=== PATIENT | male | born 1945 | race African-American/Black ===

== ENCOUNTER → 2022-09-18 | Outpatient (CLI) | payer MEDICARE, SELFPAY ==
--- NOTE | 2022-09-18 15:49 | CT_ITS ---
INDICATION: GROSS HEMATURIA EXAMINATION: CT ABDOMEN AND PELVIS WITH AND WITHOUT CONTRAST - CT Abdomen And Pelvis WO/W Contrast Injection TECHNIQUE: Helically acquired images were obtained of the abdomen and pelvis both before and after IV contrast. A radiation dose optimization technique was used for this scan. IV Contrast dosage and agent: Oral contrast: None. RADIATION DOSAGE (If Supplied By Facility): CTDIvol = ( 11.58 ) mGy, DLP = ( 1474.62 ) mGycm COMPARISON: FINDINGS: LOWER CHEST: There is scarring versus atelectasis at the right lung base. No cardiomegaly or pericardial effusion. LIVER: Homogeneous. There is a peripheral hypodensity in the right lobe of the liver which appears indeterminate, axial image 18. GALLBLADDER AND BILIARY TREE: Large gallstone is noted. No gallbladder distension or wall edema. No intra- or extrahepatic biliary ductal dilation. PANCREAS: Punctate calcifications are noted in the pancreatic head which may be sequelae of chronic pancreatitis. SPLEEN: Normal size without focal cystic or solid mass. ADRENAL GLANDS: No nodules. KIDNEYS AND URETERS: Numerous cysts are noted in both kidneys. No hydronephrosis. PERITONEUM: No ascites or free air. No other fluid collection. BOWEL: Appendix appears normal No stomach or bowel distension. No focal inflammatory change. LYMPH NODES: There are mildly prominent inguinal lymph nodes bilaterally measuring up to 1 cm. VESSELS: IVC filter is identified. URINARY BLADDER: There is thickening of the urinary bladder wall. REPRODUCTIVE ORGANS: Prostate is mildly prominent indenting the posterior wall of the urinary bladder. ABDOMINAL WALL: No discrete abdominal or pelvic wall hernia. BONES: No lytic or blastic abnormality. CT/CT Abd/Pelvis W/WO Contrast IMPRESSION: Thickened urinary bladder wall may represent an infectious or inflammatory process. Clinical correlation is commended. Enlarged prostate. Clinical correlation recommended. Large gallstone. Punctate calcifications in the pancreatic head may represent sequelae from chronic pancreatitis. Clinical correlation recommended. Indeterminate hypodensity in the right lobe of the liver. Multiphase MRI with IV contrast may be helpful for further characterization. Numerous bilateral renal cysts. Nonspecific mildly prominent inguinal lymph nodes bilaterally. Electronically Signed: Silvestre Genao, at 8:41 EDT ,
[2022-09-18 16:23] LABS: CREATININE FINGERSTICK 1.1 mg/dL (0.70-1.30); EGFR FINGERSTICK > 60.0000 mL/min (>60)
== END | disposition home or self-care (01) ==
LOC: CT 15:46
PROVIDERS: Referring Provider Urology; Visit Provider Urology
DX: R31.0 Gross hematuria (principal)
CPT/HCPCS: 74178; Q9967; A4216

== ENCOUNTER → 2022-09-21 | Outpatient (CLI) | payer MEDICARE, SELFPAY ==
[2022-09-21 17:18] LABS: PSA,Total- Diagnostic 1.51 ng/mL (0.0-4.0)
== END | disposition home or self-care (01) ==
LOC: LAB 15:01
PROVIDERS: Referring Provider Urology; Visit Provider Urology
DX: N40.1 Benign prostatic hyperplasia with lower urinary tract symptoms (principal)
CPT/HCPCS: 36415; 84153